=== PATIENT | female | born 1945 | race Caucasian/White ===

== ENCOUNTER 2016-11-29 09:57 | Inpatient (IN) | payer MEDICARE, BC ==
[~2016-11-29] VITALS: Ht 149.9 cm; Wt 60.4 kg
[~2016-11-29 09:57] MED LIST: APPLE CIDER VI1 EACH PO; ASPIRIN EC81 MG PO; CITALOPRAM HBR20 MG PO; CO Q-10100 MG PO; DILTIAZEM 24HR240 M1 PO; FOSAMAX70 MG PO; KLONOPIN TAB 00.5 MG PO; LOVASTATIN20 MG PO; OSTEO BI-FLEX1 EAC1 PO; PREVACID30 MG PO; RESTORIL15 MG PO; SINGULAIR10 MG PO; SYNTHROID75 MCG PO; ZYRTEC10 MG PO
[2016-11-29 11:40] LABS: HEMOGLOBIN 11.4 gm/dl (12.3-15.3); RED BLOOD COUNT 3.95 M/UL (4.00-5.10); WHITE BLOOD COUNT 5.4 K/UL (4.5-11.0)
[2016-11-29 12:02] LABS: BUN/CREATININE RATIO 23 (0-10)
[2016-11-29 13:43] LABS: ADENOVIRUS F 40/41 Not Detected (Negative); ASTROVIRUS Not Detected (Negative); CAMPYLOBACTER Not Detected (Negative); CLOSTRIDIUM DIFFICILE TOX A/B Not Detected (Negative); CRYPTOSPORIDIUM Not Detected (Negative); E.COLI 0157 Not Detected (Negative); ENTAMOEBA HISTOLYTICA Not Detected (Negative); ENTEROAGGREGATIVE E.COLI (EAEC Not Detected (Negative); ENTEROPATHOGENIC E.COLI (EPEC) Not Detected (Negative); ENTEROTOXIGENIC E.COLI (ETEC) Not Detected (Negative); GIARDIA LAMBLIA Not Detected (Negative); NOROVIRUS GI/GII Not Detected (Negative); PLESIOMONAS SHIGELLOIDES Not Detected (Negative); ROTOVIRUS A Not Detected (Negative); SALMONELLA Not Detected (Negative); SAPOVIRUS Not Detected (Negative); SHIG/ENTEROINVAS.ECOLI (EIEC) Not Detected (Negative); SHIGA-LIK TOX.PRO.E.COLI (STEC Not Detected (Negative); VIBRIO Not Detected (Negative); VIBRIO CHOLERAE Not Detected (Negative); YERSINIA ENTEROCOLITICA Not Detected (Negative)
[2016-11-29] MEDS ORDERED: CARTIA XT240 MG PO (16:11)
[2016-11-29] MEDS ORDERED: ZANTAC 150 MG150 MG PO (16:12)
[2016-11-29] MEDS ORDERED: VISTARIL 25 MG25 MG PO (16:13)
[2016-11-29 19:30] LABS: HEMOGLOBIN 11.1 gm/dl (12.3-15.3)
[2016-11-30 03:33] LABS: HEMOGLOBIN 10.4 gm/dl (12.3-15.3); RED BLOOD COUNT 3.71 M/UL (4.00-5.10)
[2016-11-30 03:34] LABS: WHITE BLOOD COUNT 6.9 K/UL (4.5-11.0)
[2016-11-30 04:09] LABS: BUN/CREATININE RATIO 22 (0-10)
[2016-11-30 16:28] LABS: HEMOGLOBIN 10.2 gm/dl (12.3-15.3)
[2016-11-30 19:03] LABS: HEMOGLOBIN 10.3 gm/dl (12.3-15.3)
[2016-12-01 04:22] LABS: HEMOGLOBIN 10.4 gm/dl (12.3-15.3); RED BLOOD COUNT 3.67 M/UL (4.00-5.10); WHITE BLOOD COUNT 5.5 K/UL (4.5-11.0)
[2016-12-01 16:27] LABS: HEMOGLOBIN 10.6 gm/dl (12.3-15.3)
[2016-12-02 04:32] LABS: HEMOGLOBIN 9.6 gm/dl (12.3-15.3)
--- NOTE | 2016-12-02 13:25 | NUR ---
12/02/16 0820 TO ENDO LAB FOR COLONOSCOPY 12/02/16 BACK FROM COLONOSCOPY. IN ROOM. HE IS AWARE OF FINDINGS. PT DROWSY BUT STATES SHE IS FEELING OK. SEE FREQ V/S SHEET FOR POST PROCEDURE V/S
[2016-12-02 16:25] LABS: HEMOGLOBIN 9.9 gm/dl (12.3-15.3)
[2016-12-03 04:31] LABS: HEMOGLOBIN 9.5 gm/dl (12.3-15.3); RED BLOOD COUNT 3.37 M/UL (4.00-5.10); WHITE BLOOD COUNT 6.1 K/UL (4.5-11.0)
[2016-12-03 16:25] LABS: HEMOGLOBIN 9.4 gm/dl (12.3-15.3)
[2016-12-04 04:20] LABS: HEMOGLOBIN 9.3 gm/dl (12.3-15.3)
[2016-12-04 16:32] LABS: HEMOGLOBIN 9.5 gm/dl (12.3-15.3)
[2016-12-05 03:41] LABS: HEMOGLOBIN 8.8 gm/dl (12.3-15.3)
[2016-12-05 04:12] LABS: BUN/CREATININE RATIO 10 (0-10)
[2016-12-05 16:02] LABS: HEMOGLOBIN 8.9 gm/dl (12.3-15.3)
[2016-12-05] MEDS ORDERED: FERROUS SULFAT325 MG PO (19:53)
[2017-03-05] MEDS ORDERED: FLONASE 0.05% N16 GM (08:24)
[2017-03-05] MEDS ORDERED: VITAMIN B12-FO1 EACH PO (08:26)
[2017-03-05] MEDS ORDERED: MAGNESIUM400 MG PO (08:27)
[2017-03-05] MEDS ORDERED: VITAMIN D400 UNI2 PO (08:27)
[2017-03-05] MEDS ORDERED: OSTEO BI-FLEX1 EAC1 PO (08:28)
[2017-03-05] MEDS ORDERED: COQ-10100 MG PO (08:28)
[2017-03-05] MEDS ORDERED: APPLE CIDER VI300 MG PO (08:28)
[2017-03-05] MEDS ORDERED: CALCIUM600 MG PO (08:28)
[2017-03-05] MEDS ORDERED: PROTONIX40 MG PO (10:27)
== END 2016-12-05 20:32 | disposition home or self-care (01) | DRG 378 ==
LOC: ER1 09:57 → ZEROF 12:45 → PROG CARE 12:45
PROVIDERS: Emergency Medicine; Internal Medicine; Internal Medicine Gastroenterology; ADMIT Family Medicine
PROC: 0DJD8ZZ Inspection of Lower Intestinal Tract, Via Natural or Artificial Opening Endoscopic (ICD-10-PCS; principal; 2016-11-30 12:15)
PROC: 0DJD8ZZ Inspection of Lower Intestinal Tract, Via Natural or Artificial Opening Endoscopic (ICD-10-PCS; 2016-12-02)
DX: K57.31 Diverticulosis of large intestine without perforation or abscess with bleeding (principal); D62 Acute posthemorrhagic anemia; K64.8 Other hemorrhoids; K64.4 Residual hemorrhoidal skin tags; E87.6 Hypokalemia; E83.42 Hypomagnesemia; I10 Essential (primary) hypertension; E03.9 Hypothyroidism, unspecified; E78.5 Hyperlipidemia, unspecified; J45.909 Unspecified asthma, uncomplicated; K21.9 Gastro-esophageal reflux disease without esophagitis; K44.9 Diaphragmatic hernia without obstruction or gangrene; M81.0 Age-related osteoporosis without current pathological fracture; G47.00 Insomnia, unspecified; Z79.82 Long term (current) use of aspirin; Z79.899 Other long term (current) drug therapy; Z98.890 Other specified postprocedural states; Z82.49 Family history of ischemic heart disease and other diseases of the circulatory system; Z83.3 Family history of diabetes mellitus
CPT/HCPCS: 36415; 78278; 80048; 80053; 82272; 83605; 83735; 84132; 84484; 85014; 85018; 85025; 85027; 85610; 85730; 86850; 86900; 86901; 87507; 89055; 93005; 96360; 99285; A9560; C9113; J0461; J1956; J2250; J2405; J3010; J3480; J7030; J7040; J7050; Q0177; Q9962

== ENCOUNTER → 2016-12-10 | Outpatient (CLI) | payer MEDICARE, BC ==
[~2016-12-10] MED LIST changes: +APPLE CIDER VI300 MG PO; +CALCIUM600 MG PO; +CARTIA XT240 MG PO; +COQ-10100 MG PO; +FERROUS SULFAT325 MG PO; +FLONASE 0.05% N16 GM; +MAGNESIUM400 MG PO; +PROTONIX40 MG PO; +VISTARIL 25 MG25 MG PO; +VITAMIN B12-FO1 EACH PO; +VITAMIN D400 UNI2 PO; +ZANTAC 150 MG150 MG PO
[2016-12-10 15:08] LABS: HEMOGLOBIN 9.4 gm/dl (12.3-15.3)
== END ==
LOC: LAB 14:28
PROVIDERS: Internal Medicine
DX: D62 Acute posthemorrhagic anemia (principal); E83.42 Hypomagnesemia; E87.6 Hypokalemia
CPT/HCPCS: 36415; 83735; 84132; 85014; 85018

== ENCOUNTER → 2021-05-17 | Outpatient (CLI) | payer MEDICARE ==
[~2021-05-17] VITALS: Ht 154.9 cm; Wt 59.0 kg
[~2021-05-17] MED LIST changes: +ARNUITY ELLIP200 MCG INH; +IBUPROFEN600 MG PO; +MULTIPLE VITAM1 EAC2 PO; +NORCO 5-325 TA1 EACH PO; +PATANOL5 ML OP; +PREMARIN VAG CR30 GM EXT
== END ==
LOC: OPSV 12:16
DX: M81.0 Age-related osteoporosis without current pathological fracture (principal)
CPT/HCPCS: 96365; J3489

== ENCOUNTER 2021-08-04 19:03 | Inpatient (IN) | payer MEDICARE ==
[~2021-08-04] VITALS: Ht 152.4 cm; Wt 59.4 kg
[2021-08-04 19:54] LABS: HEMOGLOBIN 12.4 gm/dl (12.3-15.3); RED BLOOD COUNT 4.21 M/UL (4.00-5.10); WHITE BLOOD COUNT 22.1 K/UL (4.5-11.0)
[2021-08-04] MEDS ORDERED: BUSPIRONE HCL5 MG PO (23:21)
[2021-08-04] MEDS ORDERED: MELATONIN10 M2 PO (23:21)
[2021-08-04] MEDS ORDERED: VITAMIN D375 MCG PO (23:23)
[2021-08-04] MEDS ORDERED: CALCIUM 500 +1 EAC2 PO (23:24)
[2021-08-04] MEDS ORDERED: ZINC50 M3 PO (23:24)
[2021-08-05 02:21] LABS: HEMOGLOBIN 11.5 gm/dl (12.3-15.3); RED BLOOD COUNT 3.95 M/UL (4.00-5.10)
[2021-08-05 02:22] LABS: WHITE BLOOD COUNT 13.1 K/UL (4.5-11.0)
[2021-08-05 09:16] LABS: ACINETOBACTER BAUMANNII Not Detected (Negative); CANDIDA ALBICANS Not Detected (Negative); CANDIDA KRUSEI Not Detected (Negative); CANDIDA TROPICALIS Not Detected (Negative); ENTEROCOCCUS Not Detected (Negative); HAEMOPHILUS INFLUENZAE Not Detected (Negative); KLEBSIELLA OXYTOCA Not Detected (Negative); KLEBSIELLA PNEUMONIAE Not Detected (Negative); KPC-CARBAPENEM-RESISTANCE GENE Not Detected (Negative); PROTEUS Not Detected (Negative); PSEUDOMONAS AERUGINOSA Not Detected (Negative); SERRATIA MARCESANS Not Detected (Negative); STAPHYLOCOCCUS Not Detected (Negative); STAPHYLOCOCCUS AUREUS Not Detected (Negative); STREP AGALACTIAE (GROUP B) Not Detected (Negative); STREP PYOGENES (GROUP A) Not Detected (Negative); STREPTOCOCCUS Not Detected (Negative); mecA (METHICILLIN RESIST GENE Not Detected (Negative); vanA/B (VANCOMYCIN RESIST GENE Not Detected (Negative)
[2021-08-05 10:42] LABS: ESCHERICHIA COLI DETECTED (Negative)
[2021-08-06 10:02] LABS: RED BLOOD COUNT 4.19 M/UL (4.00-5.10)
[2021-08-06 10:04] LABS: WHITE BLOOD COUNT 5.7 K/UL (4.5-11.0)
[2021-08-06 10:41] LABS: BUN/CREATININE RATIO 12 (0-10)
[2021-08-07 04:53] LABS: RED BLOOD COUNT 4.27 M/UL (4.00-5.10); WHITE BLOOD COUNT 5.9 K/UL (4.5-11.0)
[2021-08-07 05:49] LABS: BUN/CREATININE RATIO 11 (0-10)
[2021-08-08 04:23] LABS: HEMOGLOBIN 11.8 gm/dl (12.3-15.3); RED BLOOD COUNT 4.04 M/UL (4.00-5.10); WHITE BLOOD COUNT 7.2 K/UL (4.5-11.0)
[2021-08-08 04:34] LABS: BUN/CREATININE RATIO 13 (0-10)
[2021-08-08] MEDS ORDERED: CEFTRIAXONE1 GM IM (09:36)
--- NOTE | 2021-08-08 17:18 | NUR ---
PT DC'D 8564. DIFFICULTY SETTING UP OUTPT ANTIBIOTICS PER CASE MANAGEMENT. PT KEPT UPDATE ON ISSUES AND NOTIFIED WHEN SOLUTION MADE.
== END 2021-08-08 17:14 | disposition home or self-care (01) | DRG 872 ==
LOC: ER1 19:03 → 3 EAST 21:35 → CDU 21:35 → 3 EAST 23:40 → MED SURG 4 08-05 17:03
PROVIDERS: Emergency Medicine; Internal Medicine; ADMIT Internal Medicine
DX: A41.51 Sepsis due to Escherichia coli [E. coli] (principal); N30.00 Acute cystitis without hematuria; Z20.822 Contact with and (suspected) exposure to COVID-19; I10 Essential (primary) hypertension; I95.9 Hypotension, unspecified; E86.0 Dehydration; E87.6 Hypokalemia; E03.9 Hypothyroidism, unspecified; E78.5 Hyperlipidemia, unspecified; Z98.51 Tubal ligation status; Z90.49 Acquired absence of other specified parts of digestive tract; Z80.9 Family history of malignant neoplasm, unspecified
CPT/HCPCS: 0240U; 36415; 70450; 71045; 80048; 80053; 80202; 81001; 82550; 82553; 83605; 83735; 83874; 84484; 85025; 86140; 87040; 87077; 87086; 87150; 87186; 93005; 96374; 96375; 99285; G0378; J0696; J1650; J2185; J3370; J7030; J7070

== ENCOUNTER → 2021-08-09 | Outpatient (CLI) | payer MEDICARE ==
[~2021-08-09] VITALS: Ht 152.4 cm; Wt 59.0 kg
[~2021-08-09] MED LIST changes: +BUSPIRONE HCL5 MG PO; +CALCIUM 500 +1 EAC2 PO; +CEFTRIAXONE1 GM IM; +MELATONIN10 M2 PO; +VITAMIN D375 MCG PO; +ZINC50 M3 PO
== END ==
LOC: OPSV 14:32
DX: N39.0 Urinary tract infection, site not specified (principal)
CPT/HCPCS: 96365; J0696

== ENCOUNTER → 2021-08-11 | Outpatient (CLI) | payer MEDICARE | LOC: OPSV 14:34 | DX: N39.0 Urinary tract infection, site not specified (principal) | CPT/HCPCS: 96365; J0696 ==

== ENCOUNTER → 2021-08-12 | Outpatient (CLI) | payer MEDICARE ==
[~2021-08-12] VITALS: Ht 162.6 cm; Wt 59.0 kg
== END ==
LOC: OPSV 07:00
DX: N39.0 Urinary tract infection, site not specified (principal)
CPT/HCPCS: 96365; J0696

== ENCOUNTER → 2021-08-13 | Outpatient (CLI) | payer MEDICARE | LOC: OPSV 06:58 | DX: N39.0 Urinary tract infection, site not specified (principal) | CPT/HCPCS: 96365; J0696 ==

== ENCOUNTER → 2021-08-14 | Outpatient (CLI) | payer MEDICARE ==
[~2021-08-14] VITALS: Ht 152.4 cm; Wt 59.0 kg
== END ==
LOC: OPSV 14:31
DX: N39.0 Urinary tract infection, site not specified (principal)
CPT/HCPCS: 96365; J0696

== ENCOUNTER → 2021-08-15 | Outpatient (CLI) | payer MEDICARE ==
[~2021-08-15] VITALS: Ht 152.4 cm; Wt 59.0 kg
== END ==
LOC: OPSV 13:35
DX: N39.0 Urinary tract infection, site not specified (principal)
CPT/HCPCS: 96365; J0696

== ENCOUNTER → 2021-08-16 | Outpatient (CLI) | payer MEDICARE ==
[~2021-08-16] VITALS: Ht 152.4 cm; Wt 59.0 kg
== END ==
LOC: OPSV 13:49
DX: N39.0 Urinary tract infection, site not specified (principal)
CPT/HCPCS: 96365; J0696

== ENCOUNTER → 2021-08-17 | Outpatient (CLI) | payer MEDICARE ==
[~2021-08-17] VITALS: Ht 152.4 cm; Wt 59.0 kg
== END ==
LOC: OPSV 14:08
DX: N39.0 Urinary tract infection, site not specified (principal)
CPT/HCPCS: 96365; J0696

== ENCOUNTER → 2021-08-18 | Outpatient (CLI) | payer MEDICARE ==
[~2021-08-18] VITALS: Ht 152.4 cm; Wt 59.0 kg
== END ==
LOC: OPSV 13:54
DX: N39.0 Urinary tract infection, site not specified (principal)
CPT/HCPCS: 96365; J0696

== ENCOUNTER → 2021-08-19 | Outpatient (CLI) | payer MEDICARE ==
[~2021-08-19] VITALS: Ht 162.6 cm; Wt 59.0 kg
== END ==
LOC: OPSV 07:00
DX: N39.0 Urinary tract infection, site not specified (principal)
CPT/HCPCS: 96365; J0696